=== PATIENT | male | born 1960 | race Caucasian/White ===

== ENCOUNTER 2016-12-26 22:02 | Emergency (ER) | payer BC ==
[2016-12-27 05:08] LABS: HEMOGLOBIN 14.3 gm/dl (14.0-17.5); RED BLOOD COUNT 4.85 M/UL (4.20-5.50); WHITE BLOOD COUNT 4.7 K/UL (4.5-11.0)
[2016-12-27 05:29] LABS: BUN/CREATININE RATIO 12 (0-10)
== END 2016-12-27 05:48 | disposition home or self-care (01) ==
LOC: ER1 22:02
PROVIDERS: Physician Assistant
DX: J10.00 Influenza due to other identified influenza virus with unspecified type of pneumonia (principal); I10 Essential (primary) hypertension; Z87.891 Personal history of nicotine dependence; Z79.899 Other long term (current) drug therapy
CPT/HCPCS: 36415; 71020; 80053; 82550; 82553; 83874; 83880; 84484; 85025; 87205; 93005; 94664; 96374; 99284; J2930

== ENCOUNTER 2021-03-07 20:53 | Emergency (ER) | payer OTHER ==
[2021-03-08] MEDS ORDERED: VENTOLIN HFA 66.7 GM INH (01:13)
== END 2021-03-08 05:07 | disposition home or self-care (01) ==
LOC: ER1 20:53
DX: U07.1 COVID-19 (principal); I10 Essential (primary) hypertension
CPT/HCPCS: 0240U; 71045; 87081; 87880; 96374; 99283; J1100; M0245